=== PATIENT | female | born 1970 | race African-American/Black ===

== ENCOUNTER 2016-09-18 11:26 | Emergency (ER) | payer OTHER ==
[~2016-09-18] VITALS: Wt 80.5 kg
[~2016-09-18 11:26] MED LIST: AZIT250T94 PO; BACTDS PO; IBUP-1542 PO; LORA5TAB4 PO; PROM5SYR2 PO; PSEU120T51 PO
[2016-09-18] MEDS ORDERED: BACTDS PO (14:24)
[2016-09-18] MEDS ORDERED: IBUP-1542 PO (14:24)
--- NOTE | 2016-09-18 14:38 | ERA ---
ER Documentation Chief Complaint Date/Time DATE: 09/18/16 TIME: 14:30 Chief Complaint ABSCESS TO BUTTOCK AREA FOR THE PAST FEW WKS. NO FEVERS HPI Patient presents complaining of an abscess on the inside of her left buttock cheek. Patient has a history of chronic abscesses occurring over the past 8 years. Abscesses have been drained 3 times. In surgery was done 2 years ago to drain the abscess. Patient is not on anything at this time to relieve the pain. ROS All systems reviewed and are negative except as per history of present illness. Medications Home Meds Active Scripts Ibuprofen* (Motrin*) 600 Mg Tab, 600 MG PO Q6 for PAIN, #30 TAB Prov:YAN TRAN PA-C 09/18/16 Sulfamethoxazole-Trimethoprim* (Bactrim* DS) 800-160 Mg Tab, 1 TAB PO BID for 10 Days, TAB Prov:YAN TRAN PA-C 09/18/16 Promethazine HCl/Codeine (Prometh-Codein 6.25-10 mg/5 ml) 5 Ml Syrup, 5 ML PO QID for 5 Days Prov:KALLIE HIGH MD 06/15/16 Ibuprofen* (Ibuprofen*) 600 Mg Tablet, 600 MG PO Q6, #15 TAB Prov:KALLIE HIGH MD 06/15/16 Azithromycin* (Zithromax*) 250 Mg Tablet, 250 MG PO .ZPACK DIRECTED, #6 TAB TAKE 500 MG (2 TABS) THE FIRST DAY THEN 250 MG (1 TAB) DAYS 2-5 Prov:KALLIE HIGH MD 06/15/16 Sulfamethoxazole-Trimethoprim* (Bactrim* DS) 800-160 Mg Tab, 1 TAB PO DAILY for 5 Days, TAB Prov:MADHU HOLDER NP 02/14/16 Ibuprofen* (Motrin*) 600 Mg Tab, 600 MG PO Q6H Y for PAIN AND OR ELEVATED TEMP, #30 TAB Prov:MADHU HOLDER NP 02/14/16 Pseudoephedrine Hcl (Sudafed 12 Hour) 120 Mg Tablet.sa, 120 MG PO BID for 3 Days Prov:TARIQ BUCK PA-C 11/30/15 Loratadine* (Claritin*) 5 Mg Tab.rapdis, 5 MG PO DAILY, #14 TAB Prov:TARIQ BUCK PA-C 11/30/15 Allergies Allergies: Coded Allergies: cephalexin (Verified Allergy, Mild, SOB, 09/18/16) PMhx/Soc History of Surgery: Yes (FACIAL RECONSTRUCTION) Hx Cardiac Disorders: Yes (HTN) Hx Psychiatric Problems: No Hx Miscellaneous Medical Probl: Yes (hypertension) Hx Alcohol Use: No Hx Substance Use: No Hx Tobacco Use: No Smoking Status: Current every day smoker Physical Exam Vitals Vital Signs Date Time Temp Pulse Resp B/P Pulse Ox O2 Delivery O2 Flow Rate FiO2 09/18/16 11:38 99.9 102 21 155/82 99 Physical Exam Const: [] Head: Atraumatic Eyes: Normal Conjunctiva ENT: Normal External Ears, Nose and Mouth. Neck: Full range of motion..~ No meningismus. Resp: Clear to auscultation bilaterally Cardio: Regular rate and rhythm, no murmurs Abd: Soft, non tender, non distended. Normal bowel sounds Skin: 1-2 mm open abscess on the inside of the left gluteal cheek; no petechiae or rashes Back: No midline or flank tenderness Ext: No cyanosis, or edema Neur: Awake and alert Psych: Normal Mood and Affect Procedures/MDM Patient presented complaining of a 1-2 mm abscess on the inside of the left buttock cheek. Patient has had a history for the past 8 years of recurrent abscesses. 2 years ago she saw a surgeon to have the abscess cleared. At this time the abscess is open small enough where Dr. Ryder and I have decided that incision and drainage is not necessary at this time. We will treat her with Bactrim twice daily 10 days. Patient has said that this medication has worked for her in the past and she cannot take Keflex. Departure Diagnosis: Primary Impression: Abscess Additional Impression: Perianal fistula Condition: Stable Patient Instructions: Anal Fistula Additional Instructions: If abscess/fistula does not resolve, contact surgeon. If symptoms worsen return to the emergency department. YAN TRAN PA-C Sep 18, 2016 14:38
== END 2016-09-18 15:12 | disposition home or self-care (01) ==
LOC: FTE 11:26
DX: L02.31 Cutaneous abscess of buttock (principal); F17.210 Nicotine dependence, cigarettes, uncomplicated; K60.3 Anal fistula; I10 Essential (primary) hypertension
CPT/HCPCS: 99283

== ENCOUNTER 2017-08-02 07:06 | Day surgery (SDC) | END 2017-08-02 13:30 | disposition home or self-care (01) ==